=== PATIENT | male | born 1955 | race Caucasian/White ===

== ENCOUNTER → 2016-09-08 | Outpatient (CLI) | payer BC ==
[~2016-09-08] MED LIST: ALLOPURINOL300 MG PO; BRILINTA90 MG PO; GENTLE LAXATIVE10 MG RC; HYDROCODONE-APA1 T41 PO; LISINOPRIL10 MG PO; LISINOPRIL5 MG PO; LITE COAT ASPI325 M1 PO; LOW DOSE ASPIRI81 M2 PO; METOPROLOL SUCC25 MG PO; MILK OF MAGNESIA PO; NASONEX17 GM; NITROSTAT0.4 MG SL; PAIN RELIEF325 M1 PO; ROXICODONE5 MG PO; SIMVASTATIN40 MG PO; ZOVIRAX400 MG PO
--- NOTE | ~2016-09-08 | CT52 ---
[facility] A Service of [facility] & [facility] RADIOLOGY TEXT RESULTS PATIENT: EDEL CARLSON LOCATION: [facility] : 53 UNIT #: [id number] AGE: [address]: Cecilio Chavez MD SEX: M ORDER DR: [id number] [place] [id number] O MR#: [id number] Acc #: [id number] NAME: EDEL CARLSON : 1955 SEX: M STUDY DATE/TIME: 09/08/2016 8:36 UNIT: [facility] ROOM: STUDY DESCRIPTION: CT Cervical Spine Wo Cont Attending Physician: Cecilio Chavez M.D. Referring Physician: Cecilio Chavez M.D. Ordering Physician: Cecilio Chavez M.D. Primary Care Physician: Cecilio Chavez M.D. MEDICAL IMAGING REPORT This report is preliminary unless electronic signature is present. EXAM CT of the cervical spine without contrast HISTORY Neck pain for 6 months. No known injury. Woke up hurting with radiculopathy to the left. Neck pain toward the right side. No cancer history. TECHNIQUE This CT exam was performed with one or more of the following radiation dose reduction techniques: automatic exposure control, adjustment of mA and/or kV according to patient size, and iterative reconstruction. COMMENT CT of the cervical spine performed axial plane without contrast followed by sagittal and coronal reconstructed images. Plain film comparison is from 01/12/2011 pending restorationism. Mild reversal of lower cervical lordosis. There is about 3.0 mm of anterolisthesis of C3 on C4 which is likely degenerative in etiology with facet degenerative change, asymmetric to the right. There is severe loss of disc height C4-5, C5-6 and C6-7 with mild endplate spondylosis. Small amount of fluid or inflammatory change right side mastoid air cells. CT scanning is in general less sensitive than MRI for evaluation of soft tissue. Limited evaluation of degenerative disease is as follows: At C2-3, there is mild left-side facet degenerative change and bony foraminal narrowing. No canal stenosis. At C3-4, moderate right and milder left-sided facet degenerative change should account for the anterolisthesis of 3 on 4. Probably a broad posterior protrusion and some flattening of the cord associated with the STS. [facility] A Service of [facility] & [facility] RADIOLOGY TEXT RESULTS PATIENT: EDEL CARLSON LOCATION: [facility] : 53 UNIT #: [id number] AGE: [address]: Cecilio Chavez MD SEX: M ORDER DR: anterolisthesis of 3 on 4. No bony foraminal impingement. At C4-5, there is asymmetric left side facet degenerative change [id number] and there is end plate spondylosis and uncovertebral osteophyte formation. There is severe left and [id number] bony foraminal narrowing. There is a small left paramedian protrusion suspected and probably at least mild cord flattening and canal stenosis. At C5-6, endplate spondylosis concentric with small uncovertebral osteophyte formation and mild facet degenerative change. There is mild right and moderate left side bony foraminal narrowing. No bony canal stenosis but cannot exclude soft tissue canal compromise. At C6-7, mild bilateral facet degenerative change, endplate spondylosis and uncovertebral osteophyte formation, worse to the left with severe left and milder right-side bony foraminal narrowing. Mild bony effacement of the thecal sac. Cannot exclude soft tissue canal compromise. At C7-T1, no bony canal or foraminal impingement. IMPRESSION Multilevel cervical degenerative changes detailed above. If the patient is candidate for an MRI, this would be most helpful for better assessment of soft tissue canal compromise. There is at least multilevel bony foraminal impingement. See [id number] discussion. Dictated by... Florencia Barber M.D. THIS IS AN ELECTRONICALLY VERIFIED REPORT Florencia Barber M.D. at 09/08/2016 4:01 PM Miry[place] TD: 09/08/2016 13:38 JOB #: [id number] MEDICAL IMAGING REPORT
== END | disposition home or self-care (01) ==
LOC: SCT 08:30
DX: M54.12 Radiculopathy, cervical region (principal); M47.22 Other spondylosis with radiculopathy, cervical region
CPT/HCPCS: 72125